=== PATIENT | female | born 1940 | race Caucasian/White ===

== ENCOUNTER → 2022-10-02 | Outpatient (CLI) | payer OTHER ==
[~2022-10-02] VITALS: Ht 157.5 cm; Wt 72.6 kg
[~2022-10-02] MED LIST: REGADENOSON 0.4 MG/5 ML PF SYG IVP SCH
== END | disposition home or self-care (01) ==
LOC: RAH 10:37
PROVIDERS: ATTEND Internal Medicine Cardiovascular Disease
DX: I20.9 Angina pectoris, unspecified (principal); I44.7 Left bundle-branch block, unspecified
CPT/HCPCS: 78452; 96374; 93017; J2785; A9500 ×2